=== PATIENT | female | born 1960 | race Two or more races ===

== ENCOUNTER 2024-06-26 11:18 | Outpatient (CLI) | payer MEDICARE ==
[~2024-06-26 11:18] MED LIST: ONDA8TAB9 PO
== END 2024-06-26 23:59 | disposition home or self-care (01) ==
LOC: RAD 11:18
PROVIDERS: ATTEND Student in an Organized Health Care Education/Training Program
DX: S29.012A Strain of muscle and tendon of back wall of thorax, initial encounter (principal); M89.311 Hypertrophy of bone, right shoulder; R20.2 Paresthesia of skin; X58.XXXA Exposure to other specified factors, initial encounter; Y93.89 Activity, other specified; Y92.89 Other specified places as the place of occurrence of the external cause; Y99.8 Other external cause status
CPT/HCPCS: 72070; 72100; 73000; 73030

== ENCOUNTER 2024-07-02 10:34 | Outpatient (CLI) | payer MEDICARE | END 2024-07-02 23:59 | disposition home or self-care (01) | LOC: RAD 10:34 | PROVIDERS: ATTEND Student in an Organized Health Care Education/Training Program | DX: S29.012A Strain of muscle and tendon of back wall of thorax, initial encounter (principal); M89.319 Hypertrophy of bone, unspecified shoulder; X58.XXXA Exposure to other specified factors, initial encounter; Y93.89 Activity, other specified; Y92.89 Other specified places as the place of occurrence of the external cause; Y99.8 Other external cause status | CPT/HCPCS: 73000 ==